=== PATIENT | male | born 1945 | race Caucasian/White ===

== ENCOUNTER 2024-12-13 06:24 | Day surgery (SDC) | payer MEDICARE, OTHER, SELFPAY | END 2024-12-13 08:47 | disposition home or self-care (01) | LOC: GI 06:24 | PROVIDERS: ATTENDING PHYSICIAN Internal Medicine Gastroenterology; FAMILY PHYSICIAN Family Medicine | DX: Z12.11 Encounter for screening for malignant neoplasm of colon (principal); D12.4 Benign neoplasm of descending colon; K64.8 Other hemorrhoids; Z86.0100 Personal history of colon polyps, unspecified | CPT/HCPCS: 45380; 88305 ==